=== PATIENT | male | born 1955 | race Caucasian/White ===

== ENCOUNTER → 2017-08-30 14:22 | Outpatient (CLI) | payer BC, SELFPAY ==
[2017-09-01 13:08] LABS: PSA, Free 1.03 ng/mL; PSA, Free % 14.7 % (.)
== END ==
PROVIDERS: Family Provider Family Medicine; PCP Family Medicine; Visit Provider Urology
DX: R97.20 Elevated prostate specific antigen [PSA] (principal)
CPT/HCPCS: 36415; 84153; 84154

== ENCOUNTER → 2018-02-19 11:23 | Outpatient (CLI) | payer BC, SELFPAY ==
[2018-02-19 13:59] LABS: Absolute Lymphocyte Count 1.93 X10^3/ul (0.83-4.51); Absolute Neutrophil Count 3.2 X10^3/uL (2.0-7.7); Basophil# 0.03 X10^3/uL; Basophil% 0.5 % (0-1); Eosinophils% 3.4 % (0-5); Hematocrit 45.5 % (40-54); Hemoglobin 16.3 g/dl (13.0-16.5); Lymphocyte # 1.93 X10^3/ul (4.0); Lymphocyte % 32.8 % (19-41); Mean Corp Hgb Conc 35.8 g/gl (32-36); Mean Corpuscular Hgb 31.3 pg (27.0-32.0); Mean Corpuscular Volume 87.3 fL (80-94); Monocyte# 0.56 X10^3/uL; Monocyte% 9.5 % (0-10); Neutrophil # 3.16 X10^3/uL (2.7-7.7); Neutrophil % 53.6 % (47-70); POSITIVE COUNT NO; POSITIVE DIFFERENTIAL NO; POSITIVE MORPHOLOGY NO; Platelet Count 176 K/mm3 (150-450); RBC Distribution Width CV 12.6 % (11.6-14.6); RBC Distribution Width SD 39.8 fl (35.1-43.9); Red Blood Count 5.21 M/mm3 (4.6-6.2); White Blood Count 5.9 K/mm3 (4.4-11.0)
[2018-02-19 14:18] LABS: Hemoglobin A1c 5.2 % (4.2-6.3)
[2018-02-19 14:29] LABS: ALB/GLOB Ratio 1.1 RATIO (0.9-2.4); AST(SGOT) 14 U/L (15-37); Alanine Aminotransfer ALT/SGPT 32 U/L (16-61); Alkaline Phosphatase 96 U/L (45-117); Anion Gap 9 (5-15); BUN 13 mg/dL (7-18); BUN/Creat Ratio 14.8 RATIO (10-20); Calcium,Total 8.5 mg/dL (8.5-10.1); Chloride 106 mmol/L (98-107); Cholesterol 212 mg/dL (200); Creatinine, Serum 0.88 mg/dL (0.70-1.30); EST Glomerular Filtration Rate 94 mL/min (>60); Est Glom Filt Rate - Afr Amer 114 mL/min (>60); Globulin 3.5 g/dL (2.2-4.2); Glucose 91 mg/dL (74-106); High Density Lipoprotein 43 mg/dL; Potassium 4.2 mmol/L (3.5-5.1); Protein, Total 7.5 g/dL (6.4-8.2); Sodium Level 140 mmol/L (136-145); Thyroid Stim Hormone (TSH) 1.77 uIU/mL (0.358-3.74); Triglycerides 143 mg/dL; Very Low Density Lipoprotein 29 mg/dL (5-40)
[2018-02-24 03:06] LABS: Testosterone, Free 9.06 ng/dL (5.00-21.00)
[2018-02-24 11:08] LABS: Testosterone, % Free 2.97 % (1.50-4.20); Testosterone, Total 305 ng/dL (264-916)
== END ==
PROVIDERS: Family Provider Family Medicine; PCP Family Medicine; Referring Provider Family Medicine; Visit Provider Family Medicine
DX: Z00.00 Encounter for general adult medical examination without abnormal findings (principal); R53.83 Other fatigue
CPT/HCPCS: 36415; 80053; 80061; 83036; 84402; 84403; 84443; 85025

== ENCOUNTER → 2018-05-07 12:53 | Outpatient (CLI) | payer BC, SELFPAY ==
[2018-05-07 13:31] LABS: Absolute Lymphocyte Count 2.13 X10^3/ul (0.83-4.51); Absolute Neutrophil Count 4.6 X10^3/uL (2.0-7.7); Basophil# 0.04 X10^3/uL; Basophil% 0.5 % (0-1); Eosinophil# 0.29 X10^3/uL; Eosinophils% 3.7 % (0-5); Hemoglobin 16.6 g/dl (13.0-16.5); Lymphocyte # 2.13 X10^3/ul (4.0); Lymphocyte % 27.5 % (19-41); Mean Corp Hgb Conc 34.6 g/gl (32-36); Mean Corpuscular Hgb 30.6 pg (27.0-32.0); Mean Corpuscular Volume 88.6 fL (80-94); Mean Platelet Vol. 9.6 fl (6.2-12.0); Monocyte# 0.63 X10^3/uL; Monocyte% 8.1 % (0-10); Neutrophil # 4.63 X10^3/uL (2.7-7.7); Neutrophil % 59.9 % (47-70); Platelet Count 195 K/mm3 (150-450); RBC Distribution Width CV 12.9 % (11.6-14.6); RBC Distribution Width SD 41.1 fl (35.1-43.9); Red Blood Count 5.42 M/mm3 (4.6-6.2); White Blood Count 7.7 K/mm3 (4.4-11.0)
[2018-05-07 13:34] LABS: POSITIVE COUNT NO; POSITIVE DIFFERENTIAL NO; POSITIVE MORPHOLOGY NO
[2018-05-07 14:03] LABS: Anion Gap 8 (5-15); BUN 22 mg/dL (7-18); Calcium,Total 8.5 mg/dL (8.5-10.1); Chloride 107 mmol/L (98-107); Creatinine, Serum 1.05 mg/dL (0.70-1.30); EST Glomerular Filtration Rate 76 mL/min (>60); Est Glom Filt Rate - Afr Amer 92 mL/min (>60); Glucose 91 mg/dL (74-106); Magnesium 2.3 mg/dL (1.6-2.6); Potassium 4.3 mmol/L (3.5-5.1); Sodium Level 138 mmol/L (136-145)
== END ==
PROVIDERS: Family Provider Family Medicine; PCP Family Medicine; Referring Provider Family Medicine; Visit Provider Family Medicine
DX: R19.7 Diarrhea, unspecified (principal)
CPT/HCPCS: 36415; 80048; 83735; 85025; 87506

== ENCOUNTER 2019-01-21 07:52 | Day surgery (SDC) | payer BC, SELFPAY ==
--- NOTE | 2018-12-25 01:59 | HP_ITS ---
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 Is patient in pain?: No Allergies sulfamethoxazole [From Bactrim] Allergy (Mild, Verified 12/25/18 13:49) Unknown trimethoprim [From Bactrim] Allergy (Mild, Verified 12/25/18 13:49) Unknown [facility] Medical History (Updated 12/25/18 @ 13:48 by Evelina Mai) Anxiety (Acute) BPH (benign prostatic hyperplasia) (Acute) Surgical History S/P colonoscopy (Acute) Family History (Updated 12/25/18 @ 13:48 by Evelina Mia) Father Colon cancer Social History (Updated 12/25/18 @ 13:59 by Jey Vanegas MD) Smoking Status: Never smoker alcohol intake: current alcohol intake frequency: a few times a month HPI HPI HPI: DVAID HARTMANN, is a 63 M who presents to the office today for HPI HPI Surgical H&P: Yes HPI: DAVID HARTMANN, is a 63 M who presents to the office today for colonoscopy. Patient was referred due to diarrhea. He says the diarrhea is intermittent and watery. He says he has a history of colon cancer stage IV and his father. He also has a history of ulcerative colitis in his brother. He denies any abdominal pain or blood in his stool. He denies any nausea or vomiting. His last colonoscopy was in 2009 and was normal. ROS General General: No weight change or fatigue Cardio Cardiovascular: No murmur, pacemaker, heart disease, atrial fibrillation, high blood pressure, heart attack, heart stent, palpitations, shortness of breat with exertion or chest pain Psych Psychiatric: Yes anxiety; no depression Resp Respiratory: No shortness of breath, No sleep apnea, No cough, No COPD, No asthma, No emphysema, No wheezing Gastro Gastrointestinal: No abdominal pain, No nausea or vomiting, Yes diarrhea, No constipation, No blood in stool, No acid reflux, No hemorrhoids, No ulcers, No gallbladder problem, No black,tarry stools Randal Hematologic: No blood thinners Exam Const General: cooperative Orientation: alert, oriented x3 Resp Effort & Inspection: normal respiratory effort Auscultation: clear to auscultation bilaterally Cardio Rate: regular rate Rhythm: regular rhythm Heart Sounds: no murmurs GI Inspection: non-distended Palpation: soft, nontender Assessment & Plan Problems 1. Diarrhea, unspecified type R19.7 2. Family history of ulcerative colitis Z83.79 3. Family history of colon cancer in father Z80.0 Plan The patient is having diarrhea. He also has a history of colon cancer in his father and ulcerative colitis in his brother. He is here for colonoscopy. His last colonoscopy was in 2009 and was normal. I explained endoscopy in detail to the patient. I explained the risks including but not limited to stroke or heart attack with anesthesia, perforation of the GI tract, bleeding, infection. I explained that any of these could necessitate further emergency surgery. The patient understands and all questions were answered sufficiently. The patient wishes to proceed with procedure. Jey Vanegas MD Pager: [facility] [address] [place] [address], [address] [place] [address] Office: Orders Orders: Colonoscopy Today R19.7, Z80.0, Z83.79 Coding Level of Care Code Off vis,new,level 3 Diagnoses Diarrhea, unspecified type R19.7 ??Diarrhea type: unspecified type Family history of ulcerative colitis Z83.79 Family history of colon cancer in father Z80.0 12/25/18 5579 <Electronically signed by Jey campos MD> Date _ Jey Vanegas MD
[2018-12-25 13:49] VITALS: BMI 29.2
[2019-01-21] VITALS (7 sets, daily range): BP systolic 100–135; BP diastolic 61–96; PULSE 54–59; RESP 16–18; TEMP 36.1–36.6; O2SAT 96–99; BMI 29.9
[2019-01-21] MEDS: Lactated Ringers 1,000 ML 100 ML IV (08:43)
--- NOTE | 2019-01-21 09:00 | COLBX_PTH ---
PATIENT: DAVID HARTMANN LOC: EN U#:[id number] AGE/SX: 63/M ROOM: RE01/21/[address]: Dr. Jey Vanegas MD : 1955 BED: DIS: 01/21/2019 SPEC #: [id number] RECD: 01/21/19 10:22 STATUS: FRANCISCO DENNISE #: [id number] ROSMERY: 01/21/19 09:[address]: Jey Vanegas DEPT: SURGICAL PATHOLOGY RECD BY: Mario Daigle ENTERED: 01/21/19 13:37 SP TYPE: COLON BX OTHR DR: Dr. Corey Abbasi MD Tissues: Ascending colon Procedures: Surgery Specimen Level IV HEADER OPERATION: Colonoscopy (MAC) PRE-OP DIAGNOSIS: Diarrhea, family history of ulcerative colitis, family history colon CA TISSUE SUBMITTED: Ascending colon polyp MICROSCOPIC DIAGNOSIS Ascending colon polyp, biopsy: Tubular adenoma. SJ:latisha 9/25/19 MICROSCOPIC DESCRIPTION Slides are reviewed. GROSS DESCRIPTION Received in fixative is one container labeled with the patient's name and designated ascending colon polyp. The specimen consists of one irregular fragment of light mon soft tissue that measures 0.3 x 0.3 x 0.1 cm. The specimen is totally submitted in one cassette. / SJ:rg 01/21/19 TC:1 CPT: 51549
--- NOTE | 2019-01-21 09:39 | OP.ENDO_ITS ---
01/21/2019 Corey Abbasi [address] [place] [address] Re : Colonoscopy procedure for Prabhakar Engeler Dear Dr. Abbasi This procedure was performed on Monday, January 21, 2019. My impressions and recommendations are as follows: Impressions : - One polyp in the ascending colon, removed with a hot snare. Resected and retrieved. - The examination was otherwise normal on direct and retroflexion views. Recommendations : - Discharge patient to home. - Resume previous diet. - Continue present medications. - Await pathology results. - Repeat colonoscopy date to be determined after pending pathology results are reviewed for surveillance based on pathology results. My findings are described in the full procedure note, which is enclosed. If I can be of further assistance, please feel free to contact me at Doctor phone number(s): , Work: . Sincerely, Jey Vanegas MD 01/21/2019 9:39:00 AM This report has been signed electronically.
== END 2019-01-21 10:10 | disposition home or self-care (01) ==
LOC: EN 07:52 → AC 07:54
PROVIDERS: Family Provider Family Medicine; PCP Family Medicine; Referring Provider Family Medicine; Visit Provider Surgery
PROC: 0DJD8ZZ Inspection of Lower Intestinal Tract, Via Natural or Artificial Opening Endoscopic (ICD-10-PCS; CPT 45378; principal; 2019-01-21 08:55)
DX: D12.2 Benign neoplasm of ascending colon (principal); R19.7 Diarrhea, unspecified; Z80.0 Family history of malignant neoplasm of digestive organs; Z85.038 Personal history of other malignant neoplasm of large intestine; Z88.1 Allergy status to other antibiotic agents; Z88.2 Allergy status to sulfonamides; Z83.79 Family history of other diseases of the digestive system; F41.9 Anxiety disorder, unspecified
CPT/HCPCS: 45385; 88305; J7120; J2405

== ENCOUNTER → 2019-02-21 11:11 | Outpatient (CLI) | payer BC, SELFPAY ==
[2019-01-21 08:18] VITALS: BMI 29.9
[2019-02-21 12:44] LABS: ALB/GLOB Ratio 1.1 RATIO (0.9-2.4); AST(SGOT) 15 U/L (15-37); Alanine Aminotransfer ALT/SGPT 20 U/L (16-61); Albumin, Serum 3.8 g/dL (3.2-5.0); Alkaline Phosphatase 90 U/L (45-117); Anion Gap 4 (5-15); BUN 19 mg/dL (7-18); BUN/Creat Ratio 22.5 RATIO (10-20); Calcium,Total 8.4 mg/dL (8.5-10.1); Chloride 109 mmol/L (98-107); Cholesterol 176 mg/dL (200); Creatinine, Serum 0.84 mg/dL (0.70-1.30); EST Glomerular Filtration Rate 98 mL/min (>60); Est Glom Filt Rate - Afr Amer 119 mL/min (>60); Globulin 3.5 g/dL (2.2-4.2); Glucose 101 mg/dL (74-106); High Density Lipoprotein 49 mg/dL; PSA,Total- Diagnostic 9.04 ng/mL (0.0-4.0); Protein, Total 7.3 g/dL (6.4-8.2); Sodium Level 138 mmol/L (136-145); Triglycerides 115 mg/dL; Very Low Density Lipoprotein 23 mg/dL (5-40)
== END ==
PROVIDERS: Family Provider Family Medicine; PCP Family Medicine; Referring Provider Family Medicine; Visit Provider Family Medicine
DX: Z00.00 Encounter for general adult medical examination without abnormal findings (principal); R97.20 Elevated prostate specific antigen [PSA]
CPT/HCPCS: 36415; 80053; 80061; 84153

== ENCOUNTER 2020-06-17 15:03 | Emergency (ER) | payer BC, SELFPAY ==
[2019-01-21 08:18] VITALS: BMI 29.9
[2020-06-17 15:05] VITALS: BP 141/88; PULSE 84; RESP 16; TEMP 36.1; O2SAT 97; BMI 29.2
--- NOTE | 2020-06-17 15:58 | RAD_ITS ---
STUDY: X-RAY - RIGHT CALCANEUS REASON FOR EXAM: Male, 64 years old. LADDER FELL FROM UNDER HIM AND LANDED WRONG ON RIGHT ANKLE . PAIN IN HEEL AND LATERAL MALLEOLUS TECHNIQUE: 3 view(s) of the calcaneus were obtained. COMPARISON: Right foot x-ray on the same date FINDINGS: An acute comminuted fracture of the anterior process and mid body of the calcaneus is present with mild displacement of the larger fracture fragment laterally. Normal visualized distal tibia and fibula and talus and remaining tarsal bones. RAD/Calcaneus min 2 Views IMPRESSION: Comminuted fracture of the calcaneus Electronically Signed: Evaristo Doshi MD at 16:35 EST , Service support ,
--- NOTE | 2020-06-17 15:58 | RAD_ITS ---
STUDY: X-RAY - RIGHT FOOT CLINICAL: Male, 64 years old. LADDER FELL FROM UNDER HIM AND LANDED WRONG ON RIGHT ANKLE. PAIN IN HEEL AND LATERAL MALLEOLUS TECHNIQUE: 3 view(s) of the foot. COMPARISON: Calcaneal x-ray on the same date FINDINGS: An acute comminuted fracture of the anterior process and mid body of the calcaneus is present with mild displacement of the larger fracture fragment laterally. Normal visualized distal tibia and fibula and talus and remaining tarsal bones. Normal visualized subtalar, talonavicular, calcaneocuboid, tarsal and tarsometatarsal articulations. Normal metatarsi. Normal metatarsophalangeal joint of the great toe. Normal tibial and fibular sesamoid bones. Normal interphalangeal joint of the great toe. Normal phalanges of the great toe. Normal second through fifth metatarsophalangeal joints. Normal interphalangeal joints and phalanges of the lesser toes. RAD/Foot min 3 Views IMPRESSION: Acute comminuted fracture of the calcaneus Electronically Signed: Evaristo Doshi MD at 16:35 EST , Service support ,
--- NOTE | 2020-06-17 16:00 | ED.DCSUM_ITS ---
History of Present Illness Chief Complaint: Lower Extremity Injury Informant: Patient Onset: Today Mechanism/Context: Fall Narrative: Patient is a 64-year-old male presenting with evaluation after falls. Patient initially slipped on the ice this morning and fell backwards. He struck the back of his head. No loss of consciousness but notes he was dazed at the time. Later today he was on a ladder putting up insulation when his ladder fell out from underneath him and he landed with all his weight on his right heel. Patient has since had pain in his right heel. He also sustained some abrasions. With both injuries he also landed on his right elbow and has some associated swelling. He took some Advil earlier today after the head injury. He is not on any anticoagulation. He denies any other complaints at this time. Past Medical History - Allergies and Home Meds Allergies/Adverse Reactions: Allergies sulfamethoxazole [From Bactrim] Allergy (Mild, Verified 06/17/20 15:03) Unknown trimethoprim [From Bactrim] Allergy (Mild, Verified 06/17/20 15:03) Unknown Primary Care Physician: Corey Abbasi MD [Primary Care Provider] - Brandon Mcallister DPM [STAFF PHYSICIAN] - Past Medical History: - - depression Surgical History: noncontributory Lives: Spouse/ Significant Other Smoking Status: Never smoker Review of Systems General: Denies: Chills, Fever, Sweats Eyes: Denies: Visual changes - bilaterally, Diplopia ENT: Denies: Rhinorrhea, Sore throat Cardiovascular: Denies: Chest pain, Palpitations Respiratory: Denies: Dyspnea, Cough, Dyspnea on exertion Gastrointestinal: Denies: Abdominal pain, Nausea, Vomiting, Diarrhea, Melena, Hematochezia Genitourinary: Denies: Dysuria, Hematuria, Frequency Musculoskeletal: Reports: Swelling - right elbow , Extremity Pain - right heel, right elbow . Denies: Neck pain, Back pain Skin: Reports: Abrasions - bilateral shins and right ankle . Denies: Rash, Wounds Neurological: Denies: Headache, Weakness, Numbness Physical Exam Vital Signs/Narrative: Vital Signs Temp Pulse Resp BP Pulse Ox 06/17/20 15:05 97 F L 84 16 141/88 H 97 Inital Vital Signs reviewed: Yes General: Well nourished, Well developed Head: Normocephalic, Atraumatic Eyes: Perrl, EOMI ENT: TM's clear, No hemotympanum or drainage, No trauma. Negative for: Nasal trauma, Nasal septal hematoma Neck: Nontender, Full ROM Cardiovascular: Regular rate, Regular rhythm, No murmurs Respiratory: No distress, CTA bilaterally, Chest nontender Abdomen: Soft, Nontender, Nondistended, Normal bowel sounds Back: Nontender Extremeties: Normal range of motion of all extremities. Patient does have swelling over the right olecranon consistent with a traumatic bursitis. He does not have any bony tenderness of his elbow. Pelvis is stable. Extremities are equal length. No midline spinal tenderness or other back tenderness. No step- off signs. Patient has tenderness palpation of the right calcaneus as well as right lateral proximal foot. No bony tenderness of the ankle. Normal range of motion of the ankle. No tenderness of the fibular head. Soft tissue swelling of the lateral ankle, distal to the malleolus is present. Skin: Normal color, No rash Neurological: Alert, Oriented x3, Cranial nerves II-XII grossly intact, Normal Strength, Normal Sensation Psychological: Normal affect - Glascow Coma Scale Eye Opening: Spontaneous Motor: Obeys Commands Verbal: Oriented Coma Scale Total: 15 Diagnostic/Tx/Re-eval Clinical Impression(s) from Imaging Studies Foot X-Ray 06/17/20 15:58 IMPRESSION: Acute comminuted fracture of the calcaneus Electronically Signed: Evaristo Doshi MD at 16:35 EST , Service support , Os Calcis X-ray 06/17/20 15:58 IMPRESSION: Comminuted fracture of the calcaneus Electronically Signed: Evaristo Doshi MD at 16:35 EST , Service support , - Medical Decision Making Patient is a 64-year-old male presenting after mechanical fall. Outpatient she had 2 falls today the first he slipped on ice and fell backwards hitting the back of his head. No loss of consciousness. Patient is a normal neurologic exam and no signs of head trauma. I do not think a head CT is indicated especially because he came in for his second fall in his foot pain. He did strike his right elbow. The second fall was off of a ladder when he landed directly onto his right heel. He also struck his right elbow again. Patient appears to have a traumatic bursitis of his right elbow but normal range of motion and no bony tenderness. An Alberto wrap is applied to this. Patient is found to have a calcaneus fracture. I discussed the case with podiatry on-call, Dr. Mcallister, who requested a CT of the foot with 3D recon for further evaluation and a posterior splint. Patient be made nonweightbearing. He will go home with pain control. Patient will be contacted tomorrow by the podiatry office for further follow-up. Procedures - Lower Extremity Splints Lower Extremity Splint: Orthoglass, - - Posterior splint Splint Fabrication: Fabricated Location: Right ED Disposition - Plan for ED Patient: Disposition: Home or Assisted Living Diagnosis: Closed right calcaneal fracture, Swelling of right elbow, Bursitis due to trauma Instructions: ED Bursitis, ED Fracture, Foot Prescriptions: Oxycodone HCl/Acetaminophen [Percocet 5/325] 1 tablet PO Q6H PRN PRN 3 Days #12 tablet PRN Reason: Pain Transmission Status: Received by [id number] Referrals: Corey Abbasi MD [Primary Care Provider] - Brandon Mcallister DPM [STAFF PHYSICIAN] - Additional Instructions: Do not put any weight on your right foot until cleared by the bevel mill operator. The office will call you tomorrow. Keep an Alberto wrap on your elbow to help with the swelling. In addition to the pain medication prescribed you can also take ibuprofen.
--- NOTE | 2020-06-17 16:42 | CT_ITS ---
STUDY: CT RIGHT ANKLE WITHOUT CONTRAST REASON FOR EXAM: Male, 64 years old. FELL OFF LADDER, LANDED ON HEEL RADIATION DOSAGE (If Supplied By Facility): CTDIvol = ( 15.35 ) mGy, DLP = ( 361.44 ) mGycm TECHNIQUE: Thin section transaxial imaging of the ankle was obtained, with sagittal and coronal reconstructed images. Individualized dose optimization techniques were used for this CT. COMPARISON: X-ray of the calcaneus and foot on the same date FINDINGS: A comminuted fracture of the undersurface of the anterior process and mainly the calcaneal body is present, terminating at the junction with the one third region. There is mild cortical offset of the involved bony fragments but the overall calcaneal height is preserved. There is also a small chip fracture at the posterior lateral corner of the talus with a displaced fragment. Tiny focus of air in the sinus tarsi is released from the fractured bone. The surrounding soft tissues are mildly swollen. Normal visualized distal tibia and fibula. Normal tibiotalar articulation and talar dome. Normal talus, navicular and cuboid tarsal bones. Normal subtalar, talonavicular and calcaneocuboid articulations. Normal navicular-cuneiform, cuneiform tarsal bones and intercuneiform articulations. Normal tarsometatarsal articulations and visualized metatarsi. The muscles and tendons are grossly unremarkable. The Achilles tendon is intact. CT/Extremity Lower without Contra IMPRESSION: Comminuted fracture of the calcaneus Electronically Signed: Evaristo Doshi MD at 17:32 EST , Service support ,
[2020-06-17] MEDS: oxyCODONE 5 MG Tablet PO (17:21)
[2020-06-17 17:50] VITALS: BP 137/75; PULSE 78; RESP 16
== END 2020-06-17 18:09 | disposition home or self-care (01) ==
PROVIDERS: Emergency Provider Emergency Medicine; PCP Family Medicine
DX: S92.001A Unspecified fracture of right calcaneus, initial encounter for closed fracture (principal); S09.90XA Unspecified injury of head, initial encounter; W00.0XXA Fall on same level due to ice and snow, initial encounter; M70.821 Other soft tissue disorders related to use, overuse and pressure, right upper arm; Z88.1 Allergy status to other antibiotic agents; Z88.2 Allergy status to sulfonamides
CPT/HCPCS: 29515; 73630; 73650; 73700; 76377; 99283

== ENCOUNTER → 2020-09-01 11:17 | Outpatient (CLI) | payer BC, SELFPAY ==
[2020-09-01 13:23] LABS: AST(SGOT) 11 U/L (15-37); Alanine Aminotransfer ALT/SGPT 21 U/L (16-61); Albumin, Serum 3.8 g/dL (3.2-5.0); Alkaline Phosphatase 111 U/L (45-117); Anion Gap 6 (5-15); BUN 22 mg/dL (7-18); BUN/Creat Ratio 23.6 RATIO (10-20); Calcium,Total 8.8 mg/dL (8.5-10.1); Chloride 110 mmol/L (98-107); Cholesterol 201 mg/dL (200); Creatinine, Serum 0.93 mg/dL (0.70-1.30); EST Glomerular Filtration Rate 87 mL/min (>60); Est Glom Filt Rate - Afr Amer 105 mL/min (>60); Globulin 3.7 g/dL (2.2-4.2); Glucose 91 mg/dL (74-106); High Density Lipoprotein 61 mg/dL; Potassium 3.9 mmol/L (3.5-5.1); Protein, Total 7.5 g/dL (6.4-8.2); Sodium Level 140 mmol/L (136-145); Thyroid Stim Hormone (TSH) 1.31 uIU/mL (0.358-3.74)
== END ==
PROVIDERS: PCP Family Medicine; Referring Provider Family Medicine; Visit Provider Family Medicine
DX: I10 Essential (primary) hypertension (principal); R97.20 Elevated prostate specific antigen [PSA]
CPT/HCPCS: 36415; 80053; 82465; 83718; 84153; 84443

== ENCOUNTER → 2020-12-06 14:06 | Outpatient (CLI) | payer BC, SELFPAY ==
[2020-12-06 15:00] LABS: PSA,Total- Diagnostic 7.99 ng/mL (0.0-4.0)
== END ==
PROVIDERS: PCP Family Medicine; Referring Provider Urology; Visit Provider Urology
DX: N40.1 Benign prostatic hyperplasia with lower urinary tract symptoms (principal)
CPT/HCPCS: 36415; 84153

== ENCOUNTER → 2021-02-28 16:02 | Outpatient (CLI) | payer BC, SELFPAY ==
[2021-02-28 18:01] LABS: PSA,Total - Annual Screen 9.92 ng/mL (0.00-4.00)
== END ==
PROVIDERS: PCP Family Medicine; Visit Provider Family Medicine
DX: N41.1 Chronic prostatitis (principal)
CPT/HCPCS: 36415; 84153; G0103

== ENCOUNTER → 2021-10-07 | Outpatient (CLI) | payer BC, SELFPAY ==
--- NOTE | 2021-10-07 15:00 | ABS_PTH ---
PATIENT: DAVID HARTMANN LOC: [facility]#:[id number] AGE/SX: 66/M ROOM: RE10/07/[address]: Dr. Nael Carrion MD : 1955 BED: DIS: 10/07/2021 SPEC #: [id number] RECD: 10/07/21 15:34 STATUS: FRANCISCO REYu #: [id number] ROSMERY: 10/07/21 15:[address]: Nael Carrion DEPT: SURGICAL PATHOLOGY RECD BY: Shahla Ly ENTERED: 10/10/21 08:09 SP TYPE: Abscess OTHR DR: Dr. Corey Abbasi MD Tissues: Perianal tissue Procedures: Surgery Specimen Level III HEADER OPERATION: Incision and drainage perianal abscess PRE-OP DIAGNOSIS: Perianal abscess TISSUE SUBMITTED: Perianal abscess tissue MICROSCOPIC DIAGNOSIS Perianal abscess tissue: Pieces of skin and underlying tissue with acute inflammation and abscess formation. SJ:ltaisha 10/11/2021 MICROSCOPIC DESCRIPTION Slides are reviewed. GROSS DESCRIPTION Received in fixative is one container labeled with the patient's name and designated perianal abscess tissue. The specimen consists of three variable sized pieces of pink, congested tissue measuring in aggregate 1.5 x 1.5 x 0.3 cm. The larger two pieces are bisected. The entire specimen is submitted in one cassette. / SJ:latisha 10/10/2021 TC:2 CPT: 59699
== END | disposition home or self-care (01) ==
LOC: LABSPEC 16:05
PROVIDERS: PCP Family Medicine; Referring Provider Surgery; Visit Provider Surgery
DX: K61.0 Anal abscess (principal)
CPT/HCPCS: 87070; 87075; 87077; 87186; 87205; 88304; 88305

== ENCOUNTER → 2021-12-20 | Outpatient (CLI) | payer BC, SELFPAY ==
[2021-12-21 13:13] LABS: PSA, Free 1.37 ng/mL; PSA, Free % 15.6 % (.); PSA, Total Ultrasensitive 8.8 ng/mL (0.0-4.0)
== END | disposition home or self-care (01) ==
LOC: LAB 11:27
PROVIDERS: PCP Family Medicine; Referring Provider Urology; Visit Provider Urology
DX: R97.20 Elevated prostate specific antigen [PSA] (principal)
CPT/HCPCS: 36415; 84153; 84154

== ENCOUNTER → 2022-09-11 | Outpatient (CLI) | payer MEDICARE, OTHER, SELFPAY ==
[2022-09-11 16:20] LABS: Microalbumin,Random Urine 96.5 mg/L (NO RANGE EST.); Microalbumin:Creatinine Ratio 79.1 mg/g CRE (<30 mg/g CRE)
[2022-09-11 16:35] LABS: ALB/GLOB Ratio 0.9 RATIO (0.9-2.4); AST(SGOT) 18 U/L (15-37); Alanine Aminotransfer ALT/SGPT 26 U/L (16-61); Albumin, Serum 3.6 g/dL (3.2-5.0); Alkaline Phosphatase 92 U/L (45-117); Anion Gap 8 (5-15); BUN 21 mg/dL (7-18); BUN/Creat Ratio 23.1 RATIO (10-20); Calcium,Total 8.5 mg/dL (8.5-10.1); Chloride 109 mmol/L (98-107); Creatinine, Serum 0.91 mg/dL (0.70-1.30); EST Glomerular Filtration Rate 89 mL/min (>60); Est Glom Filt Rate - Afr Amer 108 mL/min (>60); Globulin 3.8 g/dL (2.2-4.2); Glucose 111 mg/dL (74-106); Potassium 3.9 mmol/L (3.5-5.1); Protein, Total 7.4 g/dL (6.4-8.2); Sodium Level 139 mmol/L (136-145)
== END | disposition home or self-care (01) ==
LOC: MFPLAB 12:04
PROVIDERS: PCP Family Medicine; Visit Provider Family Medicine
DX: I10 Essential (primary) hypertension (principal)
CPT/HCPCS: 36415; 80053; 82043; 82570

== ENCOUNTER 2024-02-05 07:54 | Day surgery (SDC) | payer MEDICARE, OTHER, SELFPAY ==
[2024-02-05] VITALS (7 sets, daily range): BP systolic 118–156; BP diastolic 78–90; PULSE 56–61; RESP 16–18; TEMP 36.1–36.2; O2SAT 93–100; BMI 30.4
--- NOTE | 2024-02-05 08:05 | PCM.PRE.AN2 ---
ASA Classification* ASA Classification ASA Classification: 2 Assessment & Plan Anesthesia* Anesthesia Assessment Anesthesia Assessment: Discussed sedation and/or anesthesia options, risks, benefits, and alternatives with patient/parents/legal guardian/POA. Questions invited. The patient/parents/legal guardian/POA seems to understand and agrees to proceed with anesthesia plan. Reviewed the physical assessment, medical history, allergy history and patient home medications list prior to surgery/procedure/anesthetic and documented any changes. Performed airway and anesthesia risk assessments. Anesthesia Type Anesthesia Type: MAC (see written pre anesthesia record for full assessment) Anesthesia Focused Assessment* Airway Assessment Mouth opens: >3 cm Mallampati Score: II Focused Labs Anesthesia Preop lab: CBC WBC 7.7 K/mm3 (4.4-11.0) 05/07/18 12:58 RBC 5.42 M/mm3 (4.6-6.2) 05/07/18 12:58 Hgb 16.6 g/dl (13.0-16.5) H 05/07/18 12:58 Hct 48.0 % (40-54) 05/07/18 12:58 Plt Count 195 K/mm3 (150-450) 05/07/18 12:58 CHEMISTRY Potassium 3.9 mmol/L (3.5-5.1) 09/11/22 12:05 Sodium 139 mmol/L (136-145) 09/11/22 12:05 Magnesium 2.3 mg/dL (1.6-2.6) 05/07/18 12:58 BUN 21 mg/dL (7-18) H 09/11/22 12:05 Creatinine 0.91 mg/dL (0.70-1.30) 09/11/22 12:05 Glucose 111 mg/dL (74-106) H 09/11/22 12:05 TSH 1.31 uIU/mL (0.358-3.74) 09/01/20 11:23 COAG Pre-Assessment Diagnosis/Proposed Procedure Planned Operative Procedure(s): COLOSCOPY-OA Anesthesia History Anesthesia History - 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 When Was Last Pacemaker Check QUESTION #4 FULL TEXT: You/Your Family Experience fever (hyperthermia) with Anesthesia Last Oral Intake Last Oral intake: Last Oral Intake NPO since Meds taken in AM with sips of water? Meds patient instructed to take am of surgery PONV PONV - client technologies specialist: PONV - client technologies specialist Female No 01/31/24 13:17 HX of Motion Sickness No 01/31/24 13:17 HX of N/V After Surgery No 01/31/24 13:17 Non-Smoker Yes 01/31/24 13:17 Duration of Surgery greater No 01/31/24 13:17 than 60 minutes Number of Risk Factors 1 01/31/24 13:17 PONV Score Low Risk 01/31/24 13:17 Height & Weight Height & Weight: Anesthesia: Height & Weight Height 5 ft 11 in 12/20/23 11:29 Respiratory Assessment Respiratory Assessment - client technologies specialist: Respiratory Tract Infection Hx - client technologies specialist Hx Respiratory Tract Infection No 01/31/24 13:17 STOP Sleep Apnea STOP Sleep Apnea - client technologies specialist: STOP Sleep Apnea - client technologies specialist Hx Hypertension No 01/31/24 13:17 Hx Sleep Apnea No 01/31/24 13:17 CPAP BIPAP Do you snore loudly (louder No 01/31/24 13:17 than talking or can be heard Do you often feel tired/ No 01/31/24 13:17 fatigued/ sleepy during daytime? Has anyone observed you stop No 01/31/24 13:17 breathing during sleep? STOP Results Negative 01/31/24 13:17 QUESTION #5 FULL TEXT : Do you snore loudly (louder than talking or can be heard through closed doors)? Tobacco Use History Tobacco Use History - client technologies specialist: Tobacco Use History - client technologies specialist Tobacco Use Smoking Status Never smoker 01/31/24 13:17 Hx Tobacco Use No 01/31/24 13:17 Years Smoking Packs Smoked per Day Smoking Cessation Date was within the last 15 years Hx Smoking Cessation Date Hx Smoking Cessation Counseling Hematologic Medial History Hematologic Hx - client technologies specialist: Hematologic Medical Hx - commercial agent Hx of Blood Transfusion No 01/31/24 13:17 Hx of Transfusion in last 3 No 01/31/24 13:17 Months Date of Last Transfusion (if within last 3 months) Ever experience any problems No 01/31/24 13:17 with transfusion(s)? Specify any problems Hx of Preganancy in last 3 N/A 01/31/24 13:17 Months Nurse Filling Out Transfusion VCHRISTIN 01/31/24 13:17 & Questions: Date: 01/31/24 01/31/24 13:17 Time: 13:18 01/31/24 13:17 Patient unable to answer at this time (ie. confused, unrespo /Reproduction History /Reproductive History - client technologies specialist: /Reproductive Hx- client technologies specialist Hx Now Gestational Age (in weeks): EDC: Hx Hx Para Hx Section SAB PFSH Medical History (Updated 01/31/24 @ 13:17 by Sushma Yeung) History of Clostridium difficile infection Non-smoker CPAP (continuous positive airway pressure) dependence Sleep apnea Hypertension Hx of retinal detachment Personal history of colonic polyps Family history of colon cancer in father BPH (benign prostatic hyperplasia) Anxiety Home Medications ?Medication ?Instructions ?Recorded ?Last Taken ?Type alfuzosin 10 mg tablet,extended 10 mg PO DAILY 01/17/19 Unknown History release 24 hr Diltiazem 2% / Lidocaine 5% #1 ea 10/24/21 Unknown Rx ointment (compound) escitalopram oxalate 10 mg tablet 10 mg PO DAILY 01/31/24 Unknown History Allergy/AdvReac Type Severity Reaction Status Date / Time sulfamethoxazole (From Allergy Mild Flush, Verified 01/31/24 13:07 Bactrim) Light headedness trimethoprim (From Bactrim) Allergy Mild Flush, Verified 01/31/24 13:07 light headedness Family History Father Colon cancer Surgical History (Updated 01/31/24 @ 13:17 by Sushma Yeung) Hx of bilateral cataract extraction Hx of surgical procedure Hx of surgical procedure Hx of colonoscopy S/P colonoscopy Social History (Updated 12/20/23 @ 11:19 by Shy White) household members: spouse current occupational status: retired Smoking Status: Never smoker alcohol intake: current alcohol intake frequency: a few times a month substance use type: does not use Review of Systems (Anesthesia) ROS Narrative System reviewed and no additional complaints, except as documented.
--- NOTE | 2024-02-05 09:08 | HP.PCM_ITS ---
HPI - General HPI Narrative DAVID HARTMANN, is a 68 M who presents for surveillance colonoscopy. His last colonoscopy was 5 years ago and a polyp was removed. He denies abdominal pain or blood in the stool. He has no family history of colon cancer except for his father had colon cancer in his late 80s FOR[facility]LY [facility] Medical History (Updated 02/05/24 @ 09:[address] Jey Vanegas MD) History of Clostridium difficile infection Non-smoker CPAP (continuous positive airway pressure) dependence Sleep apnea Hypertension Hx of retinal detachment Personal history of colonic polyps Family history of colon cancer in father BPH (benign prostatic hyperplasia) Anxiety Home Medications ?Medication ?Instructions ?Recorded ?Last Taken ?Type alfuzosin 10 mg tablet,extended 10 mg PO DAILY 01/17/19 02/04/24 History release 24 hr Diltiazem 2% / Lidocaine 5% #1 ea 10/24/21 Unknown Rx ointment (compound) escitalopram oxalate 10 mg tablet 10 mg PO DAILY 01/31/24 02/04/24 History Allergy/AdvReac Type Severity Reaction Status Date / Time sulfamethoxazole (From Allergy Mild Flush, Verified 02/05/24 08:11 Bactrim) Light headedness trimethoprim (From Bactrim) Allergy Mild Flush, Verified 02/05/24 08:11 light headedness Family History Father Colon cancer Surgical History (Updated 01/31/24 @ 13:17 by Sushma Yeung) Hx of bilateral cataract extraction Hx of surgical procedure Hx of surgical procedure Hx of colonoscopy S/P colonoscopy Social History (Updated 12/20/23 @ 11:19 by Shy White) household members: spouse current occupational status: retired Smoking Status: Never smoker alcohol intake: current alcohol intake frequency: a few times a month substance use type: does not use Past Medical/Surgical History Planned Operation Planned Operative Procedure(s): COLOSCOPY-OA S.O.S: No Previous Hospitalizations/Surgeries HX Hospitalizations: No HX of Surgeries: cscope Any Problems With Anesthesia: No You/Your Family Experience Fever (Hyperthermia) With Anes: No Cholinesterase deficiency: No Cardiovascular Hx Chest Pain within Last 2 months: No Hx of Irregular Heartbeat and/or Afib: No Hx Heart Attack: No Hx Congestive Heart Failure: No Hx Rheumatic Fever: No Hx Hypertension: No Hx Internal Defibrillator: No Hx Pacemaker: No Hx Cardiac Catheterization: No Hx Cardiac Surgery/Stents/Etc.: No Hx Stress Test: No Hx Pain in Legs when Walking/Leg Cramps: No Respiratory Chronic Cough: No HX of Shortness of Breath: No Hoarseness: No Hx Chronic Obstructive Pulmonary Disease (COPD): No Hx Asthma: No Hx Emphysema: No Hx Sleep Apnea: No Hx Respiratory Tract Infection/Cold (presently): No Do You Snore Loudly (louder than talking or can be heard): No Do You Often Feel Tired/ Fatigued/ Sleepy Dring Daytime?: No Has Anyone Observed You Stop Breathing During Sleep?: No Result (for STOP score): Negative Hx Smoking: No Smoking Status: Never smoker Gastrointestinal Hx Gastrointestinal Disorders: No Hx Gastrointestinal Bleed: No Hx Ulcer: No Hx Hiatal Hernia: No Difficulty Chewing/Swallowing: No Special diet followed at home: No Hx Unplanned Weight Loss of 20#: No HX Unplanned Weight Gain of 20#: No Neurological Hx Seizures: No HX Syncope/Blackout Spells/Unconsciousness: No Hx Transient Ischemic Attacks (TIA): No Hx Multiple Sclerosis: No Hx Parkinson's Disease: No Hx Head/Neck Injury: No Hx Headaches: No Hx Back Injury/Pain: No Recent Onset of Speech Difficulty: No Restless Legs: No Does patient have nerve stimulator: No Blood Disorder Hx Leukemia: No Bleeding Tendencies: No Hx Deep Vein Thrombosis: No Hx High Cholesterol: No Blood Transmitted Disease: No Hx Hepatitis: No Hx Cirrhosis: No Hx Anemia: No Hx Blood Disorders: No Genitourinary Hx Renal Disease: No Musculoskeletal Hx Arthritis: No Hx Rheumatoid Arthritis: No Hx Gout: No Recent Onset of an Orthopedic Problem: No Endocrine Hx Diabetes: No Thyroid Disease: No Hx Steroid Therapy: No Psycho/Social Hx Substance Use: No Hx Alcohol Use: Yes (1 drink daily) Hx Anxiety: Yes (on med) Hx Depression: No Mental Illness: No Hx Dementia: No Miscellaneous Hx Cancer: No Recent Exposure to Contagious Disease: No Hx of C-Diff: No Any Loose Teeth: No Allergies sulfamethoxazole (From Bactrim) Allergy (Mild, Verified 02/05/24 08:11) Flush, Light headedness trimethoprim (From Bactrim) Allergy (Mild, Verified 02/05/24 08:11) Flush, light headedness Discharge Is Pt Admitted From a Fdc, or a [facility]: No After D/C, Where Do you Plan to Go: Return Home From the [facility] History Number of Risk Factors: 2 Vital Signs Vital Signs Vital Signs: 02/05/24 08:12 02/05/24 08:12 Temperature 97.1 F L Temperature Source Temporal Pulse Rate 60 Respiratory Rate 18 Respiratory Pattern Normal Blood Pressure 156/90 H Blood Pressure Mean 112 Blood Pressure Source Monitor Blood Pressure Position Semi-Fowlers Blood Pressure Location Right Arm Pulse Ox 100 Oxygen Delivery Method Room Air Weight Weight: 218 lb Body Mass Index (BMI) 30.4 Physical Exam Const alert and oriented x3 HEENT normocephalic Eyes PERRL Resp normal respiratory effort and normal air movement Cardio regular rate and regular rhythm GI soft to palpation, non-tender and non-distended Extremity normal to inspection Assessment & Plan Assessment/Plan (1) Personal history of colonic polyps: PLAN: I explained endoscopy in detail to the patient. I explained the risks including but not limited to stroke or heart attack with anesthesia, perforation of the GI tract, bleeding, infection. I explained that any of these could necessitate further emergency surgery. The patient understands and all questions were answered sufficiently. The patient wishes to proceed with procedure. Jey Vanegas MD Pager: [facility] [address] [place] [address], [address] [place] [address] Office: Surgery Risks - Colonoscopy Risks Include but are not Limited To: Risks include but are not limited to: Bleeding, perforation requiring further surgery, inability to complete colonoscopy requiring barium enema.
--- NOTE | 2024-02-05 09:34 | OP.COLON_ITS ---
Patient Name: Prabhakar Camacho Procedure Date: 02/05/2024 8:29 AM Date of : 1955 Age: 68 Procedure: Colonoscopy Indications: High risk colon cancer surveillance: Personal history of colonic polyps Providers: Jey Vanegas MD Referring MD: Jey Vanegas MD Medicines: Propofol per Anesthesia Patient Profile: This is a 68 year old male. Refer to note in patient chart for documentation of history and physical. Last Colonoscopy: 5 years ago. Complications: No immediate complications. Procedure: Pre-Anesthesia Assessment: - Prior to the procedure, a History and Physical was performed, and patient medications and allergies were reviewed. The patient's tolerance of previous anesthesia was also reviewed. The risks and benefits of the procedure and the sedation options and risks were discussed with the patient. All questions were answered, and informed consent was obtained. Prior Anticoagulants: The patient has taken no anticoagulant or antiplatelet agents. After reviewing the risks and benefits, the patient was deemed in satisfactory condition to undergo the procedure. After I obtained informed consent, the scope was passed under direct vision. Throughout the procedure, the patient's blood pressure, pulse, and oxygen saturations were monitored continuously. The Colonoscope was introduced through the anus and advanced to the cecum, identified by appendiceal orifice and ileocecal valve. The colonoscopy was performed without difficulty. The patient tolerated the procedure well. The quality of the bowel preparation was good. The ileocecal valve, appendiceal orifice, and rectum were photographed. Scope In: 9:18:23 AM Scope Withdrawal Time 0 hours 6 minutes 2 seconds Scope Out: 9:29:38 AM Total Procedure Duration Time 0 hours 11 minutes 15 seconds Findings: The entire examined colon appeared normal on direct and retroflexion views. Impression: - The entire examined colon is normal on direct and retroflexion views. - No specimens collected. Recommendation: - Discharge patient to home. - Resume previous diet. - Continue present medications. - Repeat colonoscopy in 10 years for screening purposes. Procedure Code(s): --- Professional --- 31238, Colonoscopy, flexible; diagnostic, including collection of specimen(s) by brushing or washing, when performed (separate procedure) Diagnosis Code(s): --- Professional --- Z86.010, Personal history of colonic polyps CPT copyright 2021 [employer]. All rights reserved. The codes documented in this report are preliminary and upon etcher photoengraving review may be revised to meet current compliance requirements. Jey Vanegas MD 02/05/2024 9:34:01 AM This report has been signed electronically. Number of Addenda: 0 Note Initiated On: 02/05/2024 8:29 AM
--- NOTE | 2024-02-05 09:34 | OP.CCLET_ITS ---
02/05/2024 Corey Abbasi [address] [place] [address] Re : Colonoscopy procedure for Prabhakar Camacho Dear Dr. Abbasi This procedure was performed on Monday, February 05, 2024. My impressions and recommendations are as follows: Impressions : - The entire examined colon is normal on direct and retroflexion views. - No specimens collected. Recommendations : - Discharge patient to home. - Resume previous diet. - Continue present medications. - Repeat colonoscopy in 10 years for screening purposes. My findings are described in the full procedure note, which is enclosed. If I can be of further assistance, please feel free to contact me at Doctor phone number(s): , Work: . Sincerely, Jey Vanegas MD 02/05/2024 9:34:01 AM This report has been signed electronically.
--- NOTE | 2024-02-05 09:45 | PCM.POST.ANE ---
Anesthesia: Postop Eval I Current Vital Signs Temperature: 97 F Pulse Rate: 57 Blood Pressure: 118/78 Respiratory Rate: 16 Pulse Ox: 93 Assessment Airway patent: Yes Spontaneous unlabored respirations: Yes nausea: No Vomiting: No Anesthesia Complication: No Fluid Hydration Crystalloid volume administer (ml): 100 Total IV fluid infused: 100 Progress Note Anesthesia document: Postop Eval 1 completed: No
--- NOTE | 2024-02-05 09:46 | PCM.POSTANE2 ---
Anesthesia Postop Eval I Sum Postop Eval Completion status Anesthesia document: Postop Eval 1 completed: No Anesthesia Postop Eval I Summary Anesthesia Postop Eval I Summary: Anesthesia Postop Eval I: Assessment Summary Airway patent Yes 02/05/24 09:46 Spontaneous unlabored Yes 02/05/24 09:46 respirations Mental status nausea No 02/05/24 09:46 Vomiting No 02/05/24 09:46 Anesthesia Postop Eval I: Fluid Summary Crystalloid volume administer 100 02/05/24 09:46 (ml) Colloids volume administered ( ml) Blood Product volume administered (ml) Total IV fluid infused 100 02/05/24 09:46 Anesthesia Postop Eval I: Summary Notes Anesthesia Complication No 02/05/24 09:46 Anesthesia Complication Comment: Post-operative progress note Anesthesia: Postop Eval II Evaluation Mental status: Awake Pain Level: 0 nausea: No Vomiting: No
== END 2024-02-05 10:05 | disposition home or self-care (01) ==
LOC: EN 07:55 → AC 07:56
PROVIDERS: PCP Family Medicine; Referring Provider Surgery; Visit Provider Surgery
PROC: 0DJD8ZZ Inspection of Lower Intestinal Tract, Via Natural or Artificial Opening Endoscopic (ICD-10-PCS; CPT 45378; principal; 2024-02-05 08:55)
DX: Z12.11 Encounter for screening for malignant neoplasm of colon (principal); I10 Essential (primary) hypertension; Z80.0 Family history of malignant neoplasm of digestive organs; Z86.0100 Personal history of colon polyps, unspecified; G47.30 Sleep apnea, unspecified; Z99.89 Dependence on other enabling machines and devices; Z79.899 Other long term (current) drug therapy; Z98.41 Cataract extraction status, right eye; Z98.42 Cataract extraction status, left eye
CPT/HCPCS: G0105; A4216; J3490

== ENCOUNTER → 2024-03-18 | Outpatient (CLI) | payer MEDICARE, OTHER, SELFPAY ==
[2024-03-18 15:29] LABS: Microalbumin,Random Urine 5.1 mg/L (NO RANGE EST.); Microalbumin:Creatinine Ratio 6.1 mg/g CRE (<30 mg/g CRE)
[2024-03-18 15:56] LABS: ALB/GLOB Ratio 1.1 RATIO (0.9-2.4); AST(SGOT) 19 U/L (15-37); Alanine Aminotransfer ALT/SGPT 27 U/L (16-61); Alkaline Phosphatase 80 U/L (45-117); Anion Gap 5 (5-15); BUN 19 mg/dL (7-18); BUN/Creat Ratio 21.4 RATIO (10-20); Calcium,Total 8.8 mg/dL (8.5-10.1); Chloride 109 mmol/L (98-107); Cholesterol 198 mg/dL (200); Creatinine, Serum 0.89 mg/dL (0.70-1.30); EST Glomerular Filtration Rate 91 mL/min (>60); Est Glom Filt Rate - Afr Amer 110 mL/min (>60); Globulin 3.8 g/dL (2.2-4.2); Glucose 111 mg/dL (74-106); High Density Lipoprotein 53 mg/dL; PSA,Total- Diagnostic 7.93 ng/mL (0.0-4.0); Potassium 4.1 mmol/L (3.5-5.1); Protein, Total 7.8 g/dL (6.4-8.2); Sodium Level 137 mmol/L (136-145); Triglycerides 98 mg/dL; Very Low Density Lipoprotein 20 mg/dL (5-40)
== END | disposition home or self-care (01) ==
LOC: MFPLAB 11:59
PROVIDERS: PCP Family Medicine; Visit Provider Family Medicine
DX: N40.0 Benign prostatic hyperplasia without lower urinary tract symptoms (principal); I10 Essential (primary) hypertension
CPT/HCPCS: 36415; 80053; 80061; 82043; 82570; 84153; 84443

== ENCOUNTER 2025-02-21 12:52 | Observation (INO) | payer MEDICARE, OTHER, SELFPAY ==
[2025-02-21 12:53] VITALS: BP 148/79; PULSE 65; RESP 18; TEMP 37; O2SAT 99; BMI 30.7
--- NOTE | 2025-02-21 13:08 | US_ITS ---
PROCEDURE: GALLBLADDER 02/21/2025 REASON FOR EXAM: RIGHT UPPER QUADRANT PAIN TECHNIQUE: Procedure Code: USGB Modality: US Procedure: GALLBLADDER COMPARISON: None FINDINGS: Liver: Heterogeneous echotexture, likely fatty infiltration. No intrahepatic biliary ductal dilatation. Normal vascular flow identified. Gallbladder measures 11.5 cm. Multiple echogenic gallstones. Positive sonographic Pringle's sign documented. Tiny amount of pericholecystic fluid. Mild gallbladder wall thickening, 0.5 cm. Common bile duct: 0.3 cm. . Pancreas: Within normal limits Other: Unremarkable. US/Gallbladder IMPRESSION: 1. Cholelithiasis and mild gallbladder wall thickening. Along with positive so nographic Pringle's sign, the findings suggest acute cholecystitis. Reading Location: [id number]
--- NOTE | 2025-02-21 13:08 | EKG12_ITS ---
Test Reason : UPPER ABD PAIN Blood Pressure : */* mmHG Vent. Rate : 64 BPM Atrial Rate : 64 BPM P-R Int : 176 ms QRS Dur : 74 ms QT Int : 420 ms P-R-T Axes : 57 -5 29 degrees QTcB Int : 433 ms Normal sinus rhythm Normal ECG Confirmed by NINFA SALVADOR ([id number]), art editor KODI CUMMINS ([id number]) on 02/23/2025 7:09:17 AM Referred By: Confirmed By: NINFA SALVADOR
[2025-02-21 13:15] LABS: Hematocrit 47.4 % (40-54); Hemoglobin 16.6 g/dL (13.0-16.5); Immature Granulocytes Count 0.050 X10^3/uL (0.0-0.0); Mean Corp Hgb Conc 35.0 g/dL (32-36); Mean Corpuscular Volume 89.8 fL (80-94); Mean Platelet Vol. 9.6 fl (6.2-12.0); NRBC Flagged by Analyzer 0 % (0-5); Platelet Count 165 K/mm3 (150-450); RBC Distribution Width CV 12.2 % (11.6-14.6); RBC Distribution Width SD 39.8 fl (35.1-43.9); Red Blood Count 5.28 M/mm3 (4.6-6.2); White Blood Count 14.2 K/mm3 (4.4-11.0)
[2025-02-21] MEDS: 0.9% Normal Saline (1000mL) 1,000 ML 999 ML IV (13:16)
--- NOTE | 2025-02-21 13:35 | ED.VIS.GI ---
HPI HPI - GI History of Present Illness Chief Complaint: Abd Pain Narrative Narrative: 69-year-old male past medical history of hypertension presents with his because of epigastric pain radiating to the right and to his back that began at 1:00 this morning. This was approximately 12 hours ago. He was still awake. He denies any fevers or chills. He is not really nauseated but he forced himself to vomit 3 times in the hopes that his symptoms would resolve. He denies any problems with bowel movements, no diarrhea. He feels that his symptoms are worsening over time. He did not eat breakfast today because of decreased appetite. PFSH PFS Medical History History of Clostridium difficile infection Non-smoker CPAP (continuous positive airway pressure) dependence Sleep apnea Hypertension Hx of retinal detachment Personal history of colonic polyps Family history of colon cancer in father BPH (benign prostatic hyperplasia) Anxiety Home Medications Medication Instructions Recorded Last Taken Type escitalopram oxalate 10 mg tablet 5 mg PO DAILY 01/31/24 02/20/25 History doxazosin 1 mg tablet 1 mg PO BID 02/21/25 02/20/25 History Allergy/AdvReac Type Severity Reaction Status Date / Time sulfamethoxazole (From Allergy Mild Flush, Verified 02/21/25 12:54 Bactrim) Light headedness trimethoprim (From Bactrim) Allergy Mild Flush, Verified 02/21/25 12:54 light headedness Family History Father Colon cancer Surgical History Hx of bilateral cataract extraction Hx of surgical procedure Hx of surgical procedure Hx of colonoscopy S/P colonoscopy Social History household members: spouse current occupational status: retired Smoking Status: Never smoker alcohol intake: current alcohol intake frequency: a few times a month substance use type: does not use ROS ROS ED ROS Narrative Review of systems positive for epigastric to right upper quadrant pain. Radiates to back. No true nausea but forced himself to vomit 3 times. No diarrhea. No fevers or chills. No exacerbating or alleviating factors but seems to be getting worse over time. EXAM Physical Exam Narrative Exam Narrative: Afebrile. Vital signs noted. Nontoxic appearing. Cardiovascular examination of is a regular rate and rhythm. Lungs are clear to auscultation bilaterally. The abdomen is soft with tenderness in the epigastrium to right upper quadrant. Questionable Pringle sign. No true rebound or guarding. Positive bowel sounds. Neurological examination nonfocal, nonlateralizing. Const Vital Signs: 02/21/25 12:53 02/21/25 15:00 Temperature 98.6 F Temperature Source Oral Pulse Rate 65 64 Respiratory Rate 18 18 Blood Pressure 148/79 H 138/78 H Blood Pressure Mean 102 98 Pulse Ox 99 98 Oxygen Delivery Method Room Air Room Air MDM MDM MDM Narrative Medical decision making narrative: The differential diagnosis includes but not limited to acute cholecystitis versus pancreatitis versus ACS. I have low suspicion for ACS because the history and physical does not support this. EKG was obtained and interpreted by myself independently as normal sinus rhythm at 64 bpm without ectopy or acute ST changes. No STEMI. I do feel he can be ruled out for ACS with a single troponin as it has been greater than 6 hours. Patient administered morphine and ondansetron for analgesia. CBC, CMP, and lipase will be checked as well as right upper quadrant ultrasound. I reviewed his laboratory workup he does have a leukocytosis of 14.2 with hemoglobin slightly hemoconcentrated 16.6, hematocrit 47.4, platelet count normal at 165. CMP is remarkable for glucose of 143 with a normal anion gap of 13. AST normal at 19 with ALT 21 and total bilirubin 0.71. Lipase normal at 39. I reviewed the radiology report of the ultrasound which is concerning for acute cholecystitis with a thickened gallbladder wall with cholelithiasis. As he has a sonographic Pringle sign, and a leukocytosis, I do feel that he probably does have the acute cholecystitis diagnosis. He was started on Zosyn intravenously. In discussion with the surgeon, Dr. Fonseca, patient will be admitted to his service for probable surgery tomorrow morning. Disposition is admitted in stable condition. History & Record Review Discussion w/independent historian: Patient Additional record(s) reviewed:: Prior ED visit (Last ED visit 2020) Lab Data Attestation: I reviewed the patient's lab results. Labs: Laboratory Results - last 24 hr 02/21/25 13:04 WBC 14.2 H RBC 5.28 Hgb 16.6 H Hct 47.4 MCV 89.8 MCH 31.4 MCHC 35.0 RDW Std Deviation 39.8 RDW Coeff of Andrei 12.2 Plt Count 165 MPV 9.6 Immature Gran % (Auto) 0.400 Neut % (Auto) 79.6 H Lymph % (Auto) 15.5 L [place] % (Auto) 4.0 Eos % (Auto) 0.1 Baso % (Auto) 0.4 Absolute Neuts (auto) 11.3 H Absolute Lymphs (auto) 2.20 Nucleated RBC % 0 Sodium 138 Potassium 4.2 Chloride 103 Carbon Dioxide 21.6 Anion Gap 13 BUN 15 Creatinine 0.81 Estim Creat Clear Calc 106.59 Est GFR (MDRD) Non-Af 97 BUN/Creatinine Ratio 18.3 Glucose 143 H Calcium 9.3 Total Bilirubin 0.71 AST 19 ALT 21 Alkaline Phosphatase 89 Troponin T High Sens < 6 Total Protein 7.7 Albumin 4.6 Globulin 3.1 Albumin/Globulin Ratio 1.5 Lipase 39 Radiography Diagnostic Testing: Clinical Impression(s) from Imaging Studies Gallbladder Ultrasound 02/21/25 13:08 IMPRESSION: 1. Cholelithiasis and mild gallbladder wall thickening. Along with positive sonographic Pringle's sign, the findings suggest acute cholecystitis. Reading Location: [id number] Management Discussion w/another healthcare provider: [employer] (Dr. Priyanka Fonseca, General Surgery) Discharge Plan Dx/Rx/DC Orders Clinical Impression: Acute cholecystitis, Hypertension, Abdominal pain, acute, right upper quadrant Disposition Disposition: [facility]
[2025-02-21 13:37] LABS: Troponin T High Sensitivity < 6 ng/L (<=22)
[2025-02-21 13:40] LABS: AST(SGOT) 19 U/L (<=37); Alanine Aminotransfer ALT/SGPT 21 U/L (<=46); Albumin, Serum 4.6 g/dL (3.4-4.8); Alkaline Phosphatase 89 U/L (40-129); Anion Gap 13 (5-15); BUN 15 mg/dL (4-19); BUN/Creat Ratio 18.3 RATIO (10-20); Calcium,Total 9.3 mg/dL (7.6-11.0); Carbon Dioxide 21.6 mmol/L (21.0-32.0); Chloride 103 mmol/L (98-108); Estimated Creatinine Clearance 106.59 ml/min (50-250); Globulin 3.1 g/dL (2.2-4.2); Glucose 143 mg/dL (70-99); Lipase 39 U/L (13-75); Potassium 4.2 mmol/L (3.3-5.1)
--- NOTE | 2025-02-21 14:13 | CM.ED ---
Social Work Date of referral: 02/21/25 Reason for referral: Advanced Care Directives (ACD's) not on file. Referred by: Social Work Identification Patient provided consent for Social Work visit. Button Tacker requested a copy of ACD's which patient agreed to bring in. Romana Cunningham, PARKING REGULATION ENFORCEMENT OFFICER, TRENCH SHOVEL OPERATOR
[2025-02-21 15:00] VITALS: BP 138/78; PULSE 64; RESP 18; O2SAT 98
[2025-02-21] MEDS: Piperacil/Tazobactam 3.375 GM in 0.9% Normal Saline (50mL MB+) 50 ML IV ×2 (15:05→21:12)
[2025-02-21 15:27] VITALS: BP 134/66; PULSE 89; RESP 16; TEMP 37.1; O2SAT 99
[2025-02-21 16:07] VITALS: BMI 30.4
[2025-02-21 16:15] VITALS: BP 153/94; PULSE 65; RESP 17; TEMP 36.6; O2SAT 98
[2025-02-21] MEDS: Dextrose 5%/0.9% NaCl 1,000 ML 100 ML IV (16:57)
[2025-02-21 21:09] VITALS: BP 148/90; PULSE 58; RESP 16; TEMP 37.1; O2SAT 97
[2025-02-21] MEDS: 0.9% Saline Lock 10 ML Syringe IV (21:12)
[2025-02-22] VITALS (14 sets, daily range): BP systolic 123–144; BP diastolic 62–119; PULSE 56–76; RESP 16–18; TEMP 36.1–37.2; O2SAT 89–97; BMI 30.3
[2025-02-22] MEDS: Dextrose 5%/0.9% NaCl 1,000 ML 100 ML IV (01:33)
[2025-02-22 05:45] LABS: Hematocrit 42.6 % (40-54); Hemoglobin 14.7 g/dL (13.0-16.5); Immature Granulocytes Count 0.030 X10^3/uL (0.0-0.0); Mean Corp Hgb Conc 34.5 g/dL (32-36); Mean Corpuscular Volume 91.6 fL (80-94); Mean Platelet Vol. 9.9 fl (6.2-12.0); NRBC Flagged by Analyzer 0 % (0-5); Platelet Count 155 K/mm3 (150-450); RBC Distribution Width CV 12.6 % (11.6-14.6); RBC Distribution Width SD 41.4 fl (35.1-43.9); Red Blood Count 4.65 M/mm3 (4.6-6.2); White Blood Count 10.4 K/mm3 (4.4-11.0)
[2025-02-22 06:00] LABS: AST(SGOT) 14 U/L (<=37); Alanine Aminotransfer ALT/SGPT 15 U/L (<=46); Albumin, Serum 3.8 g/dL (3.4-4.8); Alkaline Phosphatase 73 U/L (40-129); Anion Gap 8 (5-15); BUN 12 mg/dL (4-19); BUN/Creat Ratio 13.9 RATIO (10-20); Calcium,Total 8.4 mg/dL (7.6-11.0); Carbon Dioxide 23.9 mmol/L (21.0-32.0); Chloride 108 mmol/L (98-108); Estimated Creatinine Clearance 96.53 ml/min (50-250); Globulin 2.4 g/dL (2.2-4.2); Glucose 125 mg/dL (70-99); Potassium 3.8 mmol/L (3.3-5.1)
[2025-02-22] MEDS: Piperacil/Tazobactam 3.375 GM in 0.9% Normal Saline (50mL MB+) 50 ML IV ×2 (06:40→13:29)
[2025-02-22] MEDS: 0.9% Normal Saline (250mL Bag) 250 ML 15 ML IV (06:41)
--- NOTE | 2025-02-22 07:53 | PCM.HP.STD ---
HPI - General General Date of Admission: 02/21/25 Date of Service: 02/22/25 Chief Complaint: Right upper quadrant pain HPI Narrative DAVID HARTMANN, is a 69 M who presented yesterday to the emergency department at [facility] with right upper quadrant pain. Workup in the ER revealed an elevated white count and gallbladder ultrasound showed mild gallbladder wall thickening consistent with acute cholecystitis. Pain been present for about 24 hours prior to presentation. This morning patient states he was pain-free. He believes he may have had similar pain in the past. [facility] Medical History History of Clostridium difficile infection Non-smoker CPAP (continuous positive airway pressure) dependence Sleep apnea Hypertension Hx of retinal detachment Personal history of colonic polyps Family history of colon cancer in father BPH (benign prostatic hyperplasia) Anxiety Home Medications Medication Instructions Recorded Last Taken Type escitalopram oxalate 10 mg tablet 5 mg PO DAILY 01/31/24 02/20/25 History doxazosin 1 mg tablet 1 mg PO BID 02/21/25 02/20/25 History Allergy/AdvReac Type Severity Reaction Status Date / Time sulfamethoxazole (From Allergy Mild Flush, Verified 02/21/25 12:54 Bactrim) Light headedness trimethoprim (From Bactrim) Allergy Mild Flush, Verified 02/21/25 12:54 light headedness Family History Father Colon cancer Surgical History Hx of bilateral cataract extraction Hx of surgical procedure Hx of surgical procedure Hx of colonoscopy S/P colonoscopy Social History household members: spouse current occupational status: retired Smoking Status: Never smoker alcohol intake: current alcohol intake frequency: a few times a month substance use type: does not use Vital Signs Vital Signs Vital Signs: 02/21/25 12:53 02/21/25 15:00 02/21/25 15:27 Temperature 98.6 F 98.7 F Temperature Source Oral Pulse Rate 65 64 89 Respiratory Rate 18 18 16 Respiratory Effort Respiratory Depth Respiratory Pattern Blood Pressure 148/79 H 138/78 H 134/66 H Blood Pressure Mean 102 98 88 Blood Pressure Source Blood Pressure Position Blood Pressure Location Pulse Ox 99 98 99 Oxygen Delivery Method Room Air Room Air 02/21/25 16:07 02/21/25 16:15 02/21/25 20:20 Temperature 97.9 F Temperature Source Oral Pulse Rate 65 Respiratory Rate 17 Respiratory Effort Normal Non-Labored Normal Respiratory Depth Normal Normal Respiratory Pattern Normal Normal Blood Pressure 153/94 H Blood Pressure Mean 113 Blood Pressure Source Monitor Blood Pressure Position Semi-Fowlers Blood Pressure Location Right Arm Pulse Ox 98 Oxygen Delivery Method Room Air Room Air Room Air 02/21/25 21:09 02/22/25 01:31 02/22/25 01:38 Temperature 98.7 F 99 F Temperature Source Oral Oral Pulse Rate 58 L 65 Respiratory Rate 16 18 Respiratory Effort Respiratory Depth Respiratory Pattern Blood Pressure 148/90 H 123/80 H Blood Pressure Mean 109 94 Blood Pressure Source Monitor Monitor Blood Pressure Position Semi-Fowlers Semi-Fowlers Blood Pressure Location Right Arm Right Arm Pulse Ox 97 94 Oxygen Delivery Method Room Air Room Air Room Air 02/22/25 06:33 Temperature 97.5 F L Temperature Source Oral Pulse Rate 63 Respiratory Rate 16 Respiratory Effort Respiratory Depth Respiratory Pattern Blood Pressure 138/90 H Blood Pressure Mean 106 Blood Pressure Source Monitor Blood Pressure Position Semi-Fowlers Blood Pressure Location Right Arm Pulse Ox 96 Oxygen Delivery Method Room Air Weight Weight: 217 lb 9.54 oz Body Mass Index (BMI) 30.3 Physical Exam Const alert, oriented x3 and no apparent distress General Appearance: cooperative and comfortable HEENT normocephalic Eyes PERRL and EOMs intact bilaterally Neck full ROM Resp normal respiratory effort and normal air movement GI normal to inspection, nondistended, normoactive bowel sounds Results Lab / Micro Data 02/22/25 05:10 02/22/25 05:10 Labs: Laboratory Results - last 24 hr 02/21/25 13:04: WBC 14.2 H, RBC 5.28, Hgb 16.6 H, Hct 47.4, MCV 89.8, MCH 31.4, MCHC 35.0, RDW Std Deviation 39.8, RDW Coeff of Andrei 12.2, Plt Count 165, MPV 9.6, Immature Gran % (Auto) 0.400, Neut % (Auto) 79.6 H, Lymph % (Auto) 15.5 L, Johnston % (Auto) 4.0, Eos % (Auto) 0.1, Baso % (Auto) 0.4, Absolute Neuts (auto) 11.3 H, Absolute Lymphs (auto) 2.20, Nucleated RBC % 0, Sodium 138, Potassium 4.2, Chloride 103, Carbon Dioxide 21.6, Anion Gap 13, BUN 15, Creatinine 0.81, Estim Creat Clear Calc 106.59, Est GFR (MDRD) Non-Af 97, BUN/Creatinine Ratio 18.3, Glucose 143 H, Calcium 9.3, Total Bilirubin 0.71, AST 19, ALT 21, Alkaline Phosphatase 89, Troponin T High Sens < 6, Total Protein 7.7, Albumin 4.6, Globulin 3.1, Albumin/Globulin Ratio 1.5, Lipase 39 02/22/25 05:10: WBC 10.4, RBC 4.65, Hgb 14.7, Hct 42.6, MCV 91.6, MCH 31.6, MCHC 34.5, RDW Std Deviation 41.4, RDW Coeff of Andrei 12.6, Plt Count 155, MPV 9.9, Immature Gran % (Auto) 0.300, Neut % (Auto) 52.2, Lymph % (Auto) 36.6, Johnston % (Auto) 9.0, Eos % (Auto) 1.3, Baso % (Auto) 0.6, Absolute Neuts (auto) 5.4, Absolute Lymphs (auto) 3.80, Nucleated RBC % 0, Sodium 139, Potassium 3.8, Chloride 108, Carbon Dioxide 23.9, Anion Gap 8, BUN 12, Creatinine 0.89, Estim Creat Clear Calc 96.53, Est GFR (MDRD) Non-Af 94, BUN/Creatinine Ratio 13.9, Glucose 125 H, Calcium 8.4, Total Bilirubin 0.94, AST 14, ALT 15, Alkaline Phosphatase 73, Total Protein 6.2, Albumin 3.8, Globulin 2.4, Albumin/Globulin Ratio 1.6 Imaging Radiology Impression Gallbladder Ultrasound 02/21/25 13:08 IMPRESSION: 1. Cholelithiasis and mild gallbladder wall thickening. Along with positive sonographic Pringle's sign, the findings suggest acute cholecystitis. Reading Location: [id number] Assessment & Plan Assessment/Plan (1) Abdominal pain, acute, right upper quadrant: PLAN: Plan Patient is a 69-year-old male with right upper quadrant pain and gallstones consistent with acute cholecystitis based on imaging. I have offered him I laparoscopic cholecystectomy with intraoperative cholangiograms. We discussed the details of the planned procedure including the risks benefits and alternatives and he wishes to proceed. Surgery will begin momentarily Charges/Coding Visit Charges Inpatient E&M: 40212 Init Hosp L3
[2025-02-22] MEDS: Midazolam 2 MG/2 ML Syringe IV (08:12)
[2025-02-22] MEDS: fentaNYL 100 MCG/2 ML Ampul IV (08:13)
[2025-02-22] MEDS: Lidocaine 1% (5 ml sdv) 5 ML Vial IV (08:15)
--- NOTE | 2025-02-22 08:20 | GALL_PTH ---
PATIENT: PRABHAKAR HARTMANN LOC: [facility] U#:[id number] AGE/SX: 69/M ROOM: CA313 RE02/21/[address]: Dr. Prabhakar Fonseca MD : 1955 BED: 1 DIS: 02/22/2025 SPEC #: [id number] RECD: 02/23/25 07:58 STATUS: FRANCISCO BOWDEN #: [id number] ROSMERY: 02/22/25 08:[address]: Prabhakar Fonseca DEPT: SURGICAL PATHOLOGY RECD BY: Cesario Martin ENTERED: 02/23/25 10:31 SP TYPE: CHARLIE BARBA DR: Dr. Corey Abbasi MD Tissues: A - Gallbladder, NOS Procedures: Surgery Specimen Level III HEADER OPERATION: Laparoscopic, cholecystectomy with IOC PRE-OP DIAGNOSIS: Abdominal pain, acute, right upper quadrant TISSUE SUBMITTED: A- Gallbladder and contents MICROSCOPIC DIAGNOSIS A. Gallbladder, laparoscopic cholecystectomy: - Acute on chronic cholecystitis with cholelithiasis. - Benign pericystic lymph node x1. MICROSCOPIC DESCRIPTION Slides are reviewed. GROSS DESCRIPTION A. Received in formalin labeled with the patient's name and date of . Designated as "gallbladder and contents" is a 8.3 x 3.0 x 3.0 cm pink-purple, focally disrupted, fatty gallbladder with attached cystic duct (inked black, shaved); definitive patency is unable to be determined. A 0.8 cm lymph node is present. Opening reveals yellow, somewhat inspissated bile and multiple yellow, multifaceted choleliths, ranging 0.1 cm to 1.3 cm. The mucosa is mon-castro and granular with patchy congestion, erosions, and a maximum wall thickness of 0.4 cm. Cholesterolosis is not present. Senior Instructional Designer sections are submitted in 2 cassettes as follows: A1: Margin, lymph node, cross-sectionA2: Cross-sections SC 02/23/2025 CPT:86864
[2025-02-22] MEDS: Lactated Ringers 2,000 ML 2000 ML IV (08:22)
--- NOTE | 2025-02-22 08:29 | RAD_ITS ---
PROCEDURE: CHOLANGIOGRAM/ O R,INITIAL 02/22/2025 REASON FOR EXAM: LAP RADHA TECHNIQUE: Procedure Code: RADCHO Modality: DX Procedure: CHOLANGIOGRAM/ O R,INITIAL COMPARISON: Gallbladder ultrasound FINDINGS: Cine loop images from intraoperative fluoroscopy. Fluoroscopy performed by Dr. Fonseca for a total reference air kerma of mGy. Catheter in the cystic duct remnant. Excellent opacification of the common bile duct, common hepatic duct and intrahepatic ducts. Partial filling of the pancreatic duct noted. Presumed variant anatomy of the pancreatic duct with branch likely from the uncinate of pancreas. Contrast does extend into the small bowel. RAD/Cholangiogram/ O R,Initial IMPRESSION: Cholecystectomy without choledocholithiasis. Reading Location: [id number]
--- NOTE | 2025-02-22 08:33 | PCM.PRE.AN2 ---
ASA Classification* ASA Classification ASA Classification: 2 Assessment & Plan Anesthesia* Anesthesia Assessment Anesthesia Assessment: Discussed sedation and/or anesthesia options, risks, benefits, and alternatives with patient/parents/legal guardian/POA. Questions invited. The patient/parents/legal guardian/POA seems to understand and agrees to proceed with anesthesia plan. Reviewed the physical assessment, medical history, allergy history and patient home medications list prior to surgery/procedure/anesthetic and documented any changes. Performed airway and anesthesia risk assessments. Procedural Plan Add'l anesthesia plan details: The patient was seen prior to entering OR. This is a late entry Anesthesia Type Anesthesia Type: General History Source History Obtained from:: Patient and Chart Anesthesia Focused Assessment* Temperature: 97.5 F Pulse Rate: 63 Blood Pressure: 138/90 Respiratory Rate: 16 Pulse Ox: 96 Airway Assessment Mouth opens: >3 cm Mallampati Score: II Teeth Condition: Intact and Missing Neck Range of motion (ROM): Full ROM Labs Anesthesia Preop lab: CBC WBC, (4.4-11.0) 10.4 K/mm3 Today, 05:10 RBC, (4.6-6.2) 4.65 M/mm3 Today, 05:10 Hgb, (13.0-16.5) 14.7 g/dL Today, 05:10 Hct, (40-54) 42.6 % Today, 05:10 Plt Count, (150-450) 155 K/mm3 Today, 05:10 CHEMISTRY Potassium, (3.3-5.1) 3.8 mmol/L Today, 05:10 Sodium, (133-145) 139 mmol/L Today, 05:10 Magnesium, (1.6-2.6) 2.3 mg/dL 05/07/18, 12:58 BUN, (4-19) 12 mg/dL Today, 05:10 Creatinine, (0.70-1.20) 0.89 mg/dL Today, 05:10 Glucose, (70-99) 125 mg/dL H Today, 05:10 TSH, (0.358-3.740) 1.780 uIU/mL 03/18/24, 12:01 COAG Pre-Assessment Diagnosis/Proposed Procedure Planned Operative Procedure(s): Laparoscopic Cholecystectomy Anesthesia History 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 When Was Last Pacemaker Check QUESTION #4 FULL TEXT: You/Your Family Experience fever (hyperthermia) with Anesthesia Last Oral Intake Last Oral intake: Last Oral Intake NPO since 00:00 02/22/25 06:33 Meds taken in AM with sips of No 02/22/25 06:33 water? Meds patient instructed to take am of surgery PONV PONV - capping machine operator: PONV - capping machine operator Female HX of Motion Sickness HX of N/V After Surgery Non-Smoker Duration of Surgery greater than 60 minutes Number of Risk Factors PONV Score Height & Weight Height & Weight: Anesthesia: Height & Weight Height 5 ft 11 in 02/22/25 06:33 Weight: 98.7 kg 02/22/25 06:33 Body Mass Index (BMI) 30.3 02/22/25 06:33 Respiratory Assessment Respiratory Assessment - capping machine operator: Respiratory Tract Infection Hx - capping machine operator Hx Respiratory Tract Infection No 02/21/25 16:08 STOP Sleep Apnea STOP Sleep Apnea - capping machine operator: STOP Sleep Apnea - capping machine operator Hx Hypertension No 02/21/25 16:07 Hx Sleep Apnea No 02/21/25 16:07 CPAP BIPAP Do you snore loudly (louder No 02/21/25 16:07 than talking or can be heard Do you often feel tired/ No 02/21/25 16:07 fatigued/ sleepy during daytime? Has anyone observed you stop No 02/21/25 16:07 breathing during sleep? STOP Results Negative 02/21/25 16:07 QUESTION #5 FULL TEXT : Do you snore loudly (louder than talking or can be heard through closed doors)? 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 Specify any problems Hx of Preganancy in last 3 N/A 02/21/25 16:07 Months Nurse Filling Out Transfusion [id number] 02/21/25 16:07 & Questions: Date: 02/21/25 02/21/25 16:07 Time: 16:16 02/21/25 16:07 Patient unable to answer at this time (ie. confused, unrespo /Reproduction History /Reproductive History - capping machine operator: /Reproductive Hx- capping machine operator Hx Now Gestational Age (in weeks): EDC: Hx Hx Para Hx Section SAB Active Medications Active Medications: Current Medications Generic Name Dose Route Start Last Admin Trade Name Freq PRN Reason Stop Dose Admin Acetaminophen 1,000 mg 02/21/25 22:00 02/22/25 02:33 Acetaminophen 500 Mg Tablet PO Not Given Q8 ZONIA Al Hydroxide/Mg Hydroxide 30 ml 02/21/25 16:06 Mag Hydrox/Al Hydrox/Simeth 30 Ml Udc PO Q6H PRN PRN Gastric Burning Doxazosin Mesylate 1 mg 02/21/25 22:00 02/21/25 21:37 Doxazosin 1 Mg Tablet PO 1 mg BID ZONIA Administration Protocol Dextrose/Sodium Chloride 1,000 mls @ 100 mls/hr 02/21/25 16:06 02/22/25 06:47 Dextrose 5%/0.9% Nacl IV 0 mls/hr .Q10H ZONIA Infusion Piperacillin Sod/Tazobactam 50 mls @ 12.5 mls/hr 02/21/25 22:00 02/22/25 06:40 Sod 3.375 gm/ Sodium Chloride IV 12.5 mls/hr Q8 ZONIA Administration Sodium Chloride 250 mls @ 15 mls/hr 02/21/25 16:17 02/22/25 06:41 IV 15 mls/hr .[id number] PRN Administration Saline Flush Sodium Chloride 250 mls @ 15 mls/hr 02/21/25 16:17 IV .[id number] PRN Additional IVPB Infusion Morphine Sulfate 2 - 4 mg 02/21/25 16:06 Morphine 2 Mg/Ml Syringe IV Q3H PRN PRN Pain Score 6-10 Morphine Sulfate 2 - 4 mg 02/21/25 16:13 Morphine 4 Mg/Ml Syringe IV Q3H PRN PRN Pain Score 6-10 Ondansetron HCl 4 mg 02/21/25 16:06 Ondansetron 4 Mg/2 Ml Vial IV Q8H PRN PRN NAUSEA/VOMITING Oxycodone HCl 5 mg 02/21/25 16:06 Oxycodone 5 Mg Tablet PO Q4H PRN PRN Pain Score 4-10 Sodium Chloride 10 - 40 ml 02/21/25 16:17 02/21/25 21:12 0.9% Saline Lock 10 Ml Syringe IV 10 ml UD PRN Administration SALINE FLUSH PFSH Medical History History of Clostridium difficile infection Non-smoker CPAP (continuous positive airway pressure) dependence Sleep apnea Hypertension Hx of retinal detachment Personal history of colonic polyps Family history of colon cancer in father BPH (benign prostatic hyperplasia) Anxiety Home Medications Medication Instructions Recorded Last Taken Type escitalopram oxalate 10 mg tablet 5 mg PO DAILY 01/31/24 02/20/25 History doxazosin 1 mg tablet 1 mg PO BID 02/21/25 02/20/25 History Allergy/AdvReac Type Severity Reaction Status Date / Time sulfamethoxazole (From Allergy Mild Flush, Verified 02/21/25 12:54 Bactrim) Light headedness trimethoprim (From Bactrim) Allergy Mild Flush, Verified 02/21/25 12:54 light headedness Family History Father Colon cancer Surgical History Hx of bilateral cataract extraction Hx of surgical procedure Hx of surgical procedure Hx of colonoscopy S/P colonoscopy Social History household members: spouse current occupational status: retired Smoking Status: Never smoker alcohol intake: current alcohol intake frequency: a few times a month substance use type: does not use Review of Systems (Anesthesia) ROS Narrative System reviewed and no additional complaints, except as documented.
[2025-02-22] MEDS: Bupiv/Epi 0.25% 30 ML Vial (08:53)
--- NOTE | 2025-02-22 09:27 | OP.PCM_ITS ---
Procedures Digestive 40xxx-49xxx: [id number] Laparo cholecystectomy/graph Operative Report (Standard) Operative Information Date of Procedure: 02/22/25 Pre-Operative Diagnosis: Acute cholecystitis//cholelithiasis Post-Operative Diagnosis: Same Surgery/Procedure Performed: Laparoscopic cholecystectomy with intraoperative cholangiograms marketing copywriter: Yes High Lift Driver: Gail Galvez Tasks completed by certified surgical tech/first assistant: Closing, Trocar, Retracting and Other Additional special education educational assistant?: No Type of Anesthesia: General and Local RN Documented Start/Stop Times: Operation Date: 02/22/25 08:20 Case Time Anesthesia Start 02/22/25 07:53 Into Room 02/22/25 07:53 Procedure Start 02/22/25 08:31 Procedure Start Time: 08:31 Procedure Stop Time: 09:35 Select all DRAINS/GRAFTS/IMPLANTS that apply: None Special Medications: Zosyn IV Estimated Blood Loss: 15 cc Specimen collected: Yes Description of specimen(s) removed: Gallbladder Description of surgery: The patient is a 69-year-old male who presented to the emergency department yesterday with complaints of right upper quadrant pain for the past day or so. He was found to have acute cholecystitis/cholelithiasis. He was subsidy admitted and placed on antibiotics. Plans were made to perform cholecystectomy the next morning. We discussed the details of the planned procedure including the risks benefits and alternatives and he wished to proceed. The patient was brought to the operating room today following informed consent. Antibiotics were being given and a timeout was performed. He was placed supine on the operative table with arms outstretched and arm boards. A general endotracheal anesthesia was induced. Once adequately anesthetized, the abdomen was then clipped prepped and draped in the usual sterile manner. Local anesthetic was then injected just below the umbilicus and a 5 mm incision was made using a #11 blade. A 5 mm trocar was placed optically through this incision. This was placed without difficulty. The abdomen is then fully insufflated with CO2 gas. A 5 mm 0 degree scope was inserted. There were no signs of bowel or vascular injury. Next two 5 mm trocars were placed under direct visualization in the right upper quadrant. A 10 mm trocar was placed in the epigastric area also under direct visualization. The patient was then placed in mild reverse Trendelenburg positioning along with some roll to the left to improve exposure to the gallbladder. The gallbladder was then visualized and grasped. The gallbladder seems edematous. This was reflected in a cephalad direction thus allowing exposure to the region of the infundibulum. Dissection was carried out carefully in the region of the infundibulum. This was performed using a combination of hook electrocautery as well as blunt dissection with the tip of the suction critical care nurse practitioner. There was moderate inflammation in this vicinity. The cystic duct and cystic artery were both identified. These were dissected circumferentially. Additional small vascular branches were identified as well. These were clipped and transected to help facilitate better exposure and identification. The lower aspect of the gallbladder was dissected off of the liver bed thus allowing a critical view of safety to be obtained. There appeared to be 2 and only 2 structures going to and from the gallbladder. These being the cystic duct and cystic artery. The duct was clipped with a 10 mm clip auto clutch specialist on the gallbladder side of the duct. Scissors were then used to make a small ductotomy. Cholangiogram catheter was then inserted and cholangiograms were then performed using Omnipaque. This showed a good opacification of the biliary tree without any obvious filling defects. The cholangiogram catheter was then removed. Three 10 mm clips were placed across the cystic duct stump.. The cystic duct was then transected. The cystic artery was clipped proximally and distally in a similar manner. This also was transected using scissors. Next the gallbladder was then cauterized off the undersurface of the liver using J-hook and electrocautery. Once the gallbladder was free from the liver bed it was placed into a bag and brought out through the 10 mm trocar site. There was some spillage of bile during the process of taking the gallbladder off of the liver. This was from a small hole made by one of the graspers holding the gallbladder. The drainage appeared to be mostly hydrops fluid and this was promptly suctioned out. Once the gallbladder was removed, the entire right upper quadrant was copiously irrigated with 2 L of saline until clear. Liver bed was nicely hemostatic. The fascia at the 10 mm trocar site was closed using PDS with the aid of a fascial closure device. 3 separate sutures were used to close the location. A total of 30 cc of local anesthetic was utilized throughout the course of the operation. The incisions were closed using 4-0 Vicryl after insufflation was allowed to escape and the trocars were removed. Skin glue was applied as dressing. He was awakened from anesthesia and taken recovery in good condition Surgical Findings: Acutely inflamed gallbladder. Normal cholangiograms Complications Complications: No Admit VTE Documentation VTE Present on Admission: No VTE Mechan Device Prophylaxis: SCD's VTE Pharm Prophylaxis ordered?: No Reason prophylaxis not ordered: Treatment Not Indicated
--- NOTE | 2025-02-22 09:54 | PCM.POST.ANE ---
Anesthesia: Postop Eval I Current Vital Signs Temperature: 97.0 F Pulse Rate: 73 Blood Pressure: 135/75 Respiratory Rate: 16 Pulse Ox: 94 Oxygen Delivery Method: Nasal Cannula (2 l/min) Oxygen Flow Rate (L/min): 2 Assessment Airway patent: Yes Spontaneous unlabored respirations: Yes Mental status: Awake and Calm nausea: No Vomiting: No Anesthesia Complication: No Fluid Hydration Crystalloid volume administer (ml): 1,000 Total IV fluid infused: 1,000 Progress Note Anesthesia document: Postop Eval 1 completed: Yes
--- NOTE | 2025-02-22 09:56 | PCM.POSTANE2 ---
Anesthesia Postop Eval I Sum Postop Eval Completion status Anesthesia document: Postop Eval 1 completed: Yes Anesthesia Postop Eval I Summary Anesthesia Postop Eval I Summary: Anesthesia Postop Eval I: Assessment Summary Airway patent Yes 02/22/25 09:55 Spontaneous unlabored Yes 02/22/25 09:55 respirations Mental status Awake,Calm 02/22/25 09:55 nausea No 02/22/25 09:55 Vomiting No 02/22/25 09:55 Anesthesia Postop Eval I: Fluid Summary Crystalloid volume administer 1,000 02/22/25 09:55 (ml) Colloids volume administered ( ml) Blood Product volume administered (ml) Total IV fluid infused 1,000 02/22/25 09:55 Anesthesia Postop Eval I: Summary Notes Anesthesia Complication No 02/22/25 09:55 Anesthesia Complication Comment: Post-operative progress note Anesthesia: Postop Eval II Evaluation Mental status: Awake and Calm Pain Level: 1 nausea: No Vomiting: No Progress Note Post-operative progress note: Doing very well in PACU. Comfortable. Breathing spontaneously. Complications Anesthesia Complication: No
--- NOTE | 2025-02-22 13:17 | DS.PCM_ITS ---
Providers Date of Admission: 02/21/25 Date of Discharge: 02/22/25 Primary Care Physician: Dr. Corey Abbasi MD Reason For Visit: ACUTE CHOLECYSTITIS Diagnosis Discharge Diagnosis (1) Abdominal pain, acute, right upper quadrant: Status: Acute Code(s): R10.11 - Right upper quadrant pain Plan Patient is a 69-year-old male with right upper quadrant pain and gallstones consistent with acute cholecystitis based on imaging. I have offered him I laparoscopic cholecystectomy with intraoperative cholangiograms. We discussed the details of the planned procedure including the risks benefits and alternatives and he wishes to proceed. Surgery will begin momentarily Medications at Discharge Home Medications escitalopram oxalate 10 mg tablet 5 mg PO DAILY 01/31/24 doxazosin 1 mg tablet 1 mg PO BID 02/21/25 oxycodone 5 mg tablet 5 mg PO Q8H PRN pain 4 days #12 tabs 02/22/25 Hospital Course Operations cholecystecomy Procedures None Summary of Care Provided Minutes Spent on Discharge: 15 Physical Exam Const oriented x3 and no apparent distress Weight / BMI Weight Weight: 217 lb 9.54 oz Body Mass Index (BMI) 30.3 ABG / Lab / Microbiology Data 02/22/25 05:10 02/22/25 05:10 Laboratory: Laboratory Results - last 24 hr 02/21/25 13:04: Sodium 138, Potassium 4.2, Chloride 103, Carbon Dioxide 21.6, Anion Gap 13, BUN 15, Creatinine 0.81, Estim Creat Clear Calc 106.59, Est GFR (MDRD) Non-Af 97, BUN/Creatinine Ratio 18.3, Glucose 143 H, Calcium 9.3, Total Bilirubin 0.71, AST 19, ALT 21, Alkaline Phosphatase 89, Troponin T High Sens < 6, Total Protein 7.7, Albumin 4.6, Globulin 3.1, Albumin/Globulin Ratio 1.5, Lipase 39 02/22/25 05:10: WBC 10.4, RBC 4.65, Hgb 14.7, Hct 42.6, MCV 91.6, MCH 31.6, MCHC 34.5, RDW Std Deviation 41.4, RDW Coeff of Andrei 12.6, Plt Count 155, MPV 9.9, Immature Gran % (Auto) 0.300, Neut % (Auto) 52.2, Lymph % (Auto) 36.6, Pender % (Auto) 9.0, Eos % (Auto) 1.3, Baso % (Auto) 0.6, Absolute Neuts (auto) 5.4, Absolute Lymphs (auto) 3.80, Nucleated RBC % 0, Sodium 139, Potassium 3.8, Chloride 108, Carbon Dioxide 23.9, Anion Gap 8, BUN 12, Creatinine 0.89, Estim Creat Clear Calc 96.53, Est GFR (MDRD) Non-Af 94, BUN/Creatinine Ratio 13.9, G lucose 125 H, Calcium 8.4, Total Bilirubin 0.94, AST 14, ALT 15, Alkaline Phosphatase 73, Total Protein 6.2, Albumin 3.8, Globulin 2.4, Albumin/Globulin Ratio 1.6 Radiography Diagnostic Testing: Radiology Impression Gallbladder Ultrasound 02/21/25 13:08 IMPRESSION: 1. Cholelithiasis and mild gallbladder wall thickening. Along with positive sonographic Pringle's sign, the findings suggest acute cholecystitis. Reading Location: [facility] Cholangiogram 02/22/25 08:29 IMPRESSION: Cholecystectomy without choledocholithiasis. Reading Location: [id number] Instructions Discharge Activity: May Shower May shower in (days): 1 Ice area for (Minutes): 30 Lifting Restrictions: No lifting pushing or pulling more than 20 pounds for about 4 weeks Call your doctor if your incision/area has: Continuous Slow Oozing, Sudden Increased Bleeding, Increased Pain/ Swelling, Increased Redness, Foul Smelling Discharge and Swelling at the incision site Call your doctor if you observe: Fever of 101 or Higher Cleanse incision/area with: Soap & Water DC O2, CPAP, BIPAP Needs Home O2 Discharge instructions: No DC home with Oxygen: No Please Follow Up With: Prabhakar Fonseca MD When: 2 weeks. Please call office to schedule appointment Meaningful Use Info Meaningful Use Meaningful Use Diagnoses (Choose all that apply): None applicable Discharge Plan Admission Admit Date/Time: 02/21/25 15:13 Primary Reason for Your Visit: Acute cholecystitis/cholelithiasis Attending Provider: Prabhakar Fonseca Primary Care Provider: Corey Abbasi Discharge Orders/Prescriptions Prescriptions: New oxycodone 5 mg tablet 5 mg PO Q8H PRN (Reason: pain) 4 Days Qty: 12 0RF Continued escitalopram oxalate 10 mg tablet 5 mg PO DAILY doxazosin 1 mg tablet 1 mg PO BID Referrals / Follow Up: Corey Abbasi MD [Primary Care Provider, Family Practice]
== END 2025-02-22 16:40 | disposition home or self-care (01) ==
LOC: ED 15:09 → MS3 15:39
PROVIDERS: Admitting Provider Surgery; Emergency Provider Emergency Medicine; PCP Family Medicine; Visit Provider Surgery
DX: K80.12 Calculus of gallbladder with acute and chronic cholecystitis without obstruction (principal); I10 Essential (primary) hypertension; Z79.899 Other long term (current) drug therapy; K82.1 Hydrops of gallbladder
CPT/HCPCS: 47563; 00790; 36415; 74300; 76000; 76705; 80053; 83690; 84484; 85025; 88304; 93005; 96365; 96366; 96375; 99221; 99284; A4216; C1769; G0378; J2405

== ENCOUNTER → 2025-04-13 | Outpatient (CLI) | payer MEDICARE, OTHER, SELFPAY | END | disposition home or self-care (01) | LOC: MTLAB 11:25 | PROVIDERS: PCP Family Medicine | DX: Z13.1 Encounter for screening for diabetes mellitus (principal) | CPT/HCPCS: 36415; 83036 ==